=== PATIENT | female | born 1980 | race American Indian/Alaskan Native ===

== ENCOUNTER 2018-05-25 15:10 | Emergency (ER) | payer SELFPAY ==
[2018-05-25 15:24] VITALS: BP 188/107; PULSE 90; RESP 16; TEMP 99.3; O2SAT 100
--- NOTE | 2018-05-25 15:35 | C.PDOC ---
History Of Present Illness Patient is a 38 year old female who presents to the ED for right eye erythema that began this morning. Patient noted that her grandson has pink eye as well. She denies any blurry vision or fever. Time Seen by Provider: 05/25/18 15:25 Chief Complaint (Nursing): Eye Problem History Per: Patient History/Exam Limitations: no limitations Onset/Duration Of Symptoms: Hrs Current Symptoms Are (Timing): Still Present Recent travel outside of the [place]: No Additional History Per: Patient Past Medical History Reviewed: Historical Data, Nursing Documentation, Vital Signs Vital Signs: Last Vital Signs Temp 99.3 F 05/25/18 15:19 Pulse 90 05/25/18 15:19 Resp 16 05/25/18 15:19 BP 188/107 H 05/25/18 15:19 Pulse Ox 100 05/25/18 15:19 - Medical History PMH: HTN (UNDIAGNOSED. UNTREATED.) Surgical History: No Surg Hx Family History: States: No Known Family Hx - Social History Hx Alcohol Use: Yes Hx Substance Use: No - Immunization History Hx Tetanus Toxoid Vaccination: No Hx Influenza Vaccination: Yes Hx Pneumococcal Vaccination: No Review Of Systems Except As Marked, All Systems Reviewed And Found Negative. Constitutional: Negative for: Fever Eyes: Positive for: Redness. Negative for: Vision Change Physical Exam - Physical Exam Appears: Non-toxic, No Acute Distress Skin: Warm, Dry Head: Atraumatic, Normacephalic Eye(s): right: Other (right eye injected) Oral Mucosa: Moist Neck: Normal ROM, Supple Chest: Symmetrical, No Deformity Cardiovascular: Rhythm Regular, No Murmur Respiratory: Normal Breath Sounds, No Rales, No Rhonchi, No Wheezing Gastrointestinal/Abdominal: Soft, No Tenderness Neurological/Psych: Oriented x3 ED Course And Treatment O2 Sat by Pulse Oximetry: 100 (on RA) Pulse Ox Interpretation: Normal Medical Decision Making Medical Decision Making: conjuncttiis- no e/o of fb on exam. no known trauma. pt well appearin innad. stable for empiric antibiotic course and return precautions Disposition - Disposition Referrals: Shayne Gastelum MD [Staff Provider] - Disposition: HOME/ ROUTINE Disposition Time: 15:00 Condition: STABLE Additional Instructions: return to er with worsening symptoms or concerns. Prescriptions: Polymyxin/Trimethoprim Sulfate [Polytrim Ophth Soln] 1 drop LEFTEYE Q4 #1 bottle Instructions: Conjunctivitis ([place]) Forms: [facility] (Paraguayan), Work Excuse - Clinical Impression Clinical Impression: Conjunctivitis - Scribe Statement The provider has reviewed the documentation as recorded by the Kelsyibjoanna Lemus All medical record entries made by the Kelsyibe were at my direction and personally dictated by me. I have reviewed the chart and agree that the record accurately reflects my personal performance of the history, physical exam, medical decision making, and the department course for this patient. I have also personally directed, reviewed, and agree with the discharge instructions and disposition.
== END 2018-05-25 15:45 | disposition home or self-care (01) ==
LOC: C.ER 15:10
DX: H10.9 Unspecified conjunctivitis (principal)